=== PATIENT | male | born 1960 | race Caucasian/White ===

== ENCOUNTER → 2016-12-20 | Outpatient (CLI) | payer OTHER ==
[~2016-12-20] MED LIST: EPP3/2 IM
--- NOTE | 2016-12-20 11:53 | DIAGNOSTIC IMAGING REPORT ---
R KNEE 4 OR MORE HISTORY: 56 years-old Male RIGHT KNEE PAIN acute right knee pain for 4 weeks. Initial exam. COMPARISON: None available TECHNIQUE: 4 views of the right knee FINDINGS: Mild tricompartmental osteoarthritis is noted with small joint effusion. No acute fracture, dislocation or intra-articular loose body. IMPRESSION: 1. No acute fracture or dislocation. 2. Mild tricompartmental osteoarthritis with small joint effusion. The above report was generated using voice recognition software. It may contain grammatical, syntax or spelling errors. Electronically signed by: José Miguel Yeager M.D. 12/20/2016 11:52 AM Dictated Date/Time: 12/20/2016 11:51 AM
== END | disposition home or self-care (01) ==
LOC: C.RDSM 14:44
PROVIDERS: ATTEND Physician Assistant
DX: M17.11 Unilateral primary osteoarthritis, right knee (principal)